=== PATIENT | male | born 1960 | race Caucasian/White ===

== ENCOUNTER → 2022-10-12 | Day surgery (SDC) | payer OTHER ==
[2022-10-11 10:30] LABS: Urine Bacteria NONE SEEN /hpf (None Seen); Urine Blood Negative /uL (Negative); Urine Mucus FEW (None Seen); Urine Specific Gravity 1.025 (1.001-1.035); Urine WBC <1 /hpf (0 - 3)
[2022-10-11 10:31] LABS: Basophils # (auto) 0.1 10 ^3/uL (0-0.2); Basophils % (auto) 0.5 % (0.0-2.0); Eosinophils # (auto) 0 10 ^3/uL (0-0.8); Eosinophils % (auto) 0.5 % (0.0-7.0); Hematocrit 46.7 % (41.0-53.0); Hemoglobin 16.3 g/dL (13.5-17.5); Lymphocytes # (auto) 2.9 10 ^3/uL (0.4-5.4); Lymphocytes % (auto) 28.5 % (10.0-50.0); Mean Corpuscular Hemoglobin 30.2 pg (28.0-32.0); Mean Corpuscular Hgb Conc. 34.9 g/dL (32.0-36.0); Mean Corpuscular Volume 86.6 fL (80.0-100.0); Monocytes # (auto) 0.8 10 ^3/uL (0-1.3); Monocytes % (auto) 8.2 % (0.0-12.0); Neutrophils # (auto) 6.4 10 ^3/uL (1.6-8.6); Neutrophils % (auto) 62.3 % (37.0-80.0); Nucleated Red Blood Cells % 0.5 %; Red Blood Cells 5.39 10^6/uL (4.5-5.90); Red Cell Distribution Width 13.1 % (11.8-14.3); White Blood Cell 10.3 10^3/uL (4.4-10.8)
[2022-10-11 11:02] LABS: Albumin 4.1 g/dL (3.4-5.0); Calcium 8.8 mg/dL (8.5-10.1)
[2022-10-11 11:05] LABS: BUN/Creatinine Ratio 16.5; Bilirubin, Total 0.5 mg/dL (0.2-1.0); Total Protein 7.8 g/dL (6.4-8.2)
[2022-10-11 12:22] LABS: INR 0.97 (0.9-1.15); Partial Thromboplastin Time 28.2 sec (24.6-33.4)
[~2022-10-12] VITALS: Ht 170.2 cm; Wt 86.2 kg
[~2022-10-12] MED LIST: DexAMETHasone SOD PHOS 10MG/1ML VIAL INJ ONE; HYDROmorphone HCL 2 MG/ML VL/or syr IV PRN; KETOROLAC TROMETH 30 MG/ML 1ML VIAL IV ONE; LABETALOL HCL 5 MG/ML 4ML SYRINGE IV PRN; LIDOCAINE VISCOUS 2% 15ML UD ONE; MEPERIDINE HCL (25 MG/ML) 1ML VIAL ONE; MIDAZOLAM HCL 2MG/2ML 2ml VIAL (1mg/ml) IV PRN; MIDAZOLAM HCL 2MG/2ML 2ml VIAL (1mg/ml) ONE; MORPHINE SULFATE INJ 2 MG/ml SYRG IV PRN; ONDANSETRON HCL 4 MG/2 ML VIAL IV PRN; PROPOFOL 10 MG/ML 20 ML IV ONE; ePHEDrine SULFATE 50 MG/ML AMP IV PRN; fentaNYL CITRATE 100 MCG/2 ML VL ONE; hydrALAZINE HCL 20 MG/ML VL IV PRN
[2022-10-12 12:03] VITALS: BP 121/60
== END | disposition home or self-care (01) ==
LOC: GI 08:54
PROVIDERS: ATTEND Internal Medicine Gastroenterology
DX: R10.9 Unspecified abdominal pain (principal); D12.2 Benign neoplasm of ascending colon; D12.4 Benign neoplasm of descending colon; K29.50 Unspecified chronic gastritis without bleeding; K44.9 Diaphragmatic hernia without obstruction or gangrene; K64.0 First degree hemorrhoids; G47.33 Obstructive sleep apnea (adult) (pediatric); F17.210 Nicotine dependence, cigarettes, uncomplicated; Z20.822 Contact with and (suspected) exposure to COVID-19; K25.9 Gastric ulcer, unspecified as acute or chronic, without hemorrhage or perforation
CPT/HCPCS: 36415; 43239; 45385; 80053; 81001; 85025; 85610; 85730; 88305; 88342; J1100; J2175; J2250; J2704; J3010; U0003

== ENCOUNTER 2025-08-30 09:26 | Day surgery (SDC) | payer OTHER ==
[2025-08-27 09:53] LABS: Hematocrit 44.7 % (41.0-53.0); Hemoglobin 15.5 g/dL (13.5-17.5); Mean Corpuscular Hemoglobin 29.9 pg (28.0-32.0); Mean Corpuscular Volume 86.0 fL (80.0-100.0); Nucleated Red Blood Cells % 0.1 %
[2025-08-27 10:00] LABS: Urine Protein, UAD Negative (Negative)
[2025-08-27 10:17] LABS: Alanine Aminotransferase 26 U/L (7-40); Albumin 4.7 g/dL (3.2-4.8); Alkaline Phosphatase 98 U/L (46-116); Anion Gap 9 (5-15); BUN/Creatinine Ratio 20.6 (10.0-20.0); Blood Urea Nitrogen 20 mg/dL (9-23); Calcium 9.5 mg/dL (8.7-10.4); Carbon Dioxide 24 mmol/L (20-31); INR 1.17 (0.9-1.15); Partial Thromboplastin Time 34.7 SEC (24.5-34.5); Potassium 4.1 mmol/L (3.5-5.1); Prothrombin Time 12.2 sec (9.3-11.8); Sodium 142 mmol/L (136-145); Total Protein 7.5 g/dL (5.7-8.2)
[2025-08-27 10:18] LABS: Bilirubin, Total 0.6 mg/dL (0.2-1.0)
[2025-08-27 10:21] LABS: Chloride 109 mmol/L (98-107); Glucose 107 mg/dL (74-106)
[~2025-08-30] VITALS: Ht 170.2 cm; Wt 91.6 kg
[~2025-08-30 09:26] MED LIST changes: -DexAMETHasone SOD PHOS 10MG/1ML VIAL INJ ONE; +GABA-1308 PO; -HYDROmorphone HCL 2 MG/ML VL/or syr IV PRN; -KETOROLAC TROMETH 30 MG/ML 1ML VIAL IV ONE; -LABETALOL HCL 5 MG/ML 4ML SYRINGE IV PRN; -LIDOCAINE VISCOUS 2% 15ML UD ONE; -MEPERIDINE HCL (25 MG/ML) 1ML VIAL ONE; -MIDAZOLAM HCL 2MG/2ML 2ml VIAL (1mg/ml) IV PRN; -MIDAZOLAM HCL 2MG/2ML 2ml VIAL (1mg/ml) ONE; -MORPHINE SULFATE INJ 2 MG/ml SYRG IV PRN; +MULT-1018 PO; +NAP500T PO; -ONDANSETRON HCL 4 MG/2 ML VIAL IV PRN; -PROPOFOL 10 MG/ML 20 ML IV ONE; -ePHEDrine SULFATE 50 MG/ML AMP IV PRN; -fentaNYL CITRATE 100 MCG/2 ML VL ONE; -hydrALAZINE HCL 20 MG/ML VL IV PRN
[2025-08-30] MEDS ORDERED: PROPOFOL 10 MG/ML 20 ML IV ONE (10:33)
[2025-08-30] MEDS ORDERED: MIDAZOLAM HCL 2MG/2ML 2ml VIAL (1mg/ml) ONE (10:33)
[2025-08-30] MEDS ORDERED: MEPERIDINE HCL (25 MG/ML) 1ML VIAL ONE (10:42)
[2025-08-30 10:57] VITALS: PULSE 68; RESP 18; TEMP 97.7; O2SAT 99
--- NOTE | 2025-08-30 10:59 | DVHOP2 ---
Operative Report DATE OF OPERATION: 08/30/25 PROCEDURE: Colonoscopy with cold biopsy polypectomy. PREOPERATIVE INDICATION: The patient is a 64 -year-old male undergoing colonoscopy for surveillance with personal history of tubular adenomas POSTOPERATIVE DIAGNOSES: 1. Patient had 6-7 small benign-appearing rectosigmoid polyps that were seen and removed by cold biopsy forceps 2. Trace internal hemorrhoids otherwise completely normal colonoscopy examination up to the cecum and terminal ileum PROCEDURE PERFORMED BY: Sandy Triana M.D. SCOPE: Olympus videocolonoscope. ASA CLASS: 2 PREOPERATIVE MEDICATIONS: Dr. Pravin Roberson PROCEDURE IN DETAIL: After obtaining an informed consent, the patient was placed on left lateral decubitus position. He was then sedated with the above medications. A rectal examination was performed that was normal. The colonoscope was then passed through the anus into the rectosigmoid and through the descending, transverse, and ascending colon up to the cecum with visualization of the appendiceal orifice, base of the cecum and the ileocecal valve. The colonoscope was then withdrawn. The distal 3-5 cm of the terminal ileum were normal No masses or colitis were seen. There was no clear-cut diverticular disease. In the rectosigmoid there were six or seven 2-3 mm benign-appearing polyps that were seen and removed via cold biopsy forceps On retroflexion and straight on view patient had trace to 1+ internal hemorrhoids The patient tolerated the procedure well without difficulty. WITHDRAWAL TIME: 10 minutes QUALITY OF THE PREP: [place] Bowel Prep score: 9. COMPLICATIONS : None SPECIMENS: Rectosigmoid colon polyps DISPOSITION: Stable D/C to home PLAN: 1. Repeat colonoscopy base on biopsy result likely in 3-5 years 2. Resume GI soft diet advance as tolerated 3. Hold aspirin blood thinners for one week 4. Outpatient follow up with me in 2-4 weeks to review results and discuss further management SANDY TRIANA MD Aug 30, 2025 10:59
[2025-08-30] MEDS ORDERED: ONDANSETRON HCL 4 MG/2 ML VIAL IV PRN (11:15)
[2025-08-30 11:20] VITALS: BP 114/68; PULSE 68; RESP 16; O2SAT 97
== END 2025-08-30 11:27 | disposition home or self-care (01) ==
LOC: GI 09:26
PROVIDERS: ATTEND Internal Medicine Gastroenterology
DX: Z12.11 Encounter for screening for malignant neoplasm of colon (principal); K63.5 Polyp of colon; K64.8 Other hemorrhoids; F41.9 Anxiety disorder, unspecified; F32.A Depression, unspecified; E66.9 Obesity, unspecified; E78.00 Pure hypercholesterolemia, unspecified; G47.30 Sleep apnea, unspecified; Z79.899 Other long term (current) drug therapy; Z98.890 Other specified postprocedural states
CPT/HCPCS: 36415; 45380; 80053; 81001; 85025; 85610; 85730; 88305; J2175; J2250; J2704; J7030